=== PATIENT | male | born 1985 | race American Indian/Alaskan Native ===

== ENCOUNTER 2020-12-31 21:04 | Emergency (ER) | payer SELFPAY ==
[2020-12-31] MEDS ORDERED: IBUPROFEN 600 MG TAB PO ONE (23:09)
[2020-12-31] MEDS ORDERED: ONDANSETRON 4 MG ODT TAB PO ONE (23:09)
[2020-12-31] MEDS ORDERED: HYDROcodone/ACETAMINOPHEN 5-325 MG TAB PO ONE (23:09)
--- NOTE | 2020-12-31 23:44 | XRay Report ---
RIGHT KNEE 3 VIEWS INDICATION / CLINICAL INFORMATION: Patient complaining of right knee pain after jumping off the back of a car. COMPARISON: None available. FINDINGS: BONES / JOINT(S): The joint spaces are well-maintained. No significant arthritis. No evidence of frac ture, subluxation or joint effusion. SOFT TISSUES: No significant abnormality. ADDITIONAL FINDINGS: None. Signer Name: Blane Myers MD Signed: 12/31/2020 11:40 PM Workstation Name: [id number]
--- NOTE | 2021-01-01 00:06 | Emergency Department Report ---
ED Fall HPI - General Chief Complaint: Extremity Injury, Lower Stated Complaint: RIGHT KNEE PAIN Source: patient Mode of arrival: Ambulatory - History of Present Illness Initial Comments: Patient is a 35-year-old -French male with a history of asthma who presents to the ED with complaint of acute onset persistent severe right knee pain after he slipped of the trunk of a car that drove accidentally and unannounced and landed on his right knee about 4 hours ago. Patient states that he is unable to perform any active range of motion of the right leg because of severe right knee pain. Patient states that the pain is especially worse with any active range of motion or ambulation. Patient denies head or neck injuries, back pain, hip pain, dizziness, syncope, loss of consciousness, nausea and vomiting, chest pain or shortness of breath, numbness and tingling or weakness of lower extremities bilaterally. MD Complaint: fall, other (right knee pain) -: Sudden, hour(s) (4) Fall From: other (fell off a trunk of a car) When Fall Occurred: 4-6 hours [employer] Fall Witnessed: yes, by family Place Fall Occurred: street Loss of Consciousness: none Prolonged Down Time?: no Symptoms Prior to Fall: none Location: other (right knee) Location - Extremities: Right: Knee (pain) Severity: severe Severity scale (0 -10): 8 Quality: sharp, aching Context: tripped/slipped, other (Slipped and fell off the trunk of a car) Associated Symptoms: denies. denies: headache, neck pain, numbness, weakness, chest paint, shortness of breath, abdominal pain, hematuria, unable to walk, lightheaded, vertigo, confusion, other - Related Data Home Medications Medication Instructions Recorded Confirmed Last Taken Ipratropium [place] [Atrovent Hfa] 12.9 gm IH QID PRN 09/28/15 10/01/15 09/28/15 Previous Rx's Medication Instructions Recorded Last Taken Type Albuterol Mdi (or & Nicu Only) 2 puff IH QID PRN #1 inha 09/28/15 Unknown Rx [ProAir HFA Inhaler] diazePAM TAB [Valium] 5 mg PO Q8H PRN #12 tablet 10/01/15 Unknown Rx Acetaminophen/Codeine [Tylenol 1 - 2 tab PO Q6H PRN #12 tab 01/01/21 Unknown Rx /Codeine # 3 tab] Ibuprofen [Motrin] 800 mg PO Q8HR PRN #30 tablet 01/01/21 Unknown Rx methOCARBAMOL [Robaxin TAB] 750 mg PO Q8H PRN #21 tablet 01/01/21 Unknown Rx Allergies Allergy/AdvReac Type Severity Reaction Status Date / Time antihistamine Allergy Unknown Uncoded 12/31/20 23:07 ED Review of Systems ROS: Stated complaint: RIGHT KNEE PAIN Other details as noted in HPI Constitutional: denies: chills, fever Eyes: denies: eye pain, eye discharge, vision change ENT: denies: ear pain, throat pain Respiratory: denies: cough, shortness of breath, wheezing Cardiovascular: denies: chest pain, palpitations Endocrine: no symptoms reported Gastrointestinal: denies: abdominal pain, nausea, diarrhea Genitourinary: denies: urgency, dysuria Musculoskeletal: joint swelling (Mild right knee swelling), arthralgia (Right knee pain). denies: back pain Skin: denies: rash, lesions Neurological: denies: headache, weakness, paresthesias Psychiatric: denies: anxiety, depression Hematological/Lymphatic: denies: easy bleeding, easy bruising ED Past Medical Hx - Past Medical History Previous Medical History?: Yes Hx Asthma: Yes - Surgical History Past Surgical History?: No - Social History Smoking Status: Never Smoker Substance Use Type: None - Medications Home Medications: Home Medications Medication Instructions Recorded Confirmed Last Taken Type Albuterol Mdi (or & Nicu Only) 2 puff IH QID PRN #1 inha 09/28/15 10/01/15 Unknown Rx [ProAir HFA Inhaler] Ipratropium [place] [Atrovent Hfa] 12.9 gm IH QID PRN 09/28/15 10/01/15 09/28/15 History diazePAM TAB [Valium] 5 mg PO Q8H PRN #12 tablet 10/01/15 Unknown Rx Acetaminophen/Codeine [Tylenol 1 - 2 tab PO Q6H PRN #12 tab 01/01/21 Unknown Rx /Codeine # 3 tab] Ibuprofen [Motrin] 800 mg PO Q8HR PRN #30 tablet 01/01/21 Unknown Rx methOCARBAMOL [Robaxin TAB] 750 mg PO Q8H PRN #21 tablet 01/01/21 Unknown Rx ED Physical Exam - General Limitations: No Limitations General appearance: alert, in no apparent distress - Head Head exam: Present: atraumatic, normocephalic, normal inspection - Eye Eye exam: Present: normal appearance, PERRL, EOMI Pupils: Present: normal accommodation - ENT ENT exam: Present: normal exam, normal orophraynx, mucous membranes moist, TM's normal bilaterally, normal external ear exam - Neck Neck exam: Present: normal inspection, full ROM - Respiratory Respiratory exam: Present: normal lung sounds bilaterally. Absent: respiratory distress, wheezes, rales, rhonchi, chest wall tenderness, accessory muscle use, decreased breath sounds, prolonged expiratory, other - Cardiovascular Cardiovascular Exam: Present: regular rate, normal rhythm, normal heart sounds. Absent: systolic murmur, diastolic murmur, rubs, gallop - GI/Abdominal GI/Abdominal exam: Present: soft, normal bowel sounds. Absent: distended, tenderness, guarding, rebound, hyperactive bowel sounds - Extremities Exam Extremities exam: Present: normal inspection, tenderness (Palpable right knee tenderness with limited range of motion due to pain), normal capillary refill, joint swelling (Mild right knee swelling with tenderness). Absent: full ROM (Limited range of motion of right knee due to pain) - Back Exam Back exam: Present: normal inspection, full ROM. Absent: tenderness, CVA tenderness (R), CVA tenderness (L), muscle spasm, paraspinal tenderness, vertebral tenderness - Neurological Exam Neurological exam: Present: alert, oriented X3, CN II-XII intact, normal gait, reflexes normal - Psychiatric Psychiatric exam: Present: normal affect, normal mood - Skin Skin exam: Present: warm, dry, intact, normal color. Absent: rash ED Course Vital Signs 12/31/20 23:01 Temperature 98.6 F Pulse Rate 82 Respiratory 18 Rate Blood Pressure 163/109 O2 Sat by Pulse 99 Oximetry ED Medical Decision Making - Radiology Data Radiology results: report reviewed, image reviewed Findings [facility] [address] [place] [address] XRay Report Signed Patient: PATRICK LUNDBERG MR#: [id number] : 1985 Acct:[id number] Age/Sex: 35 / M ADM Date: 12/31/20 Loc: ED Attending Dr: Ordering Physician: LEA TRUONG Date of Service: 12/31/20 Procedure(s): XR knee 3V RT Accession Number(s): [id number] cc: LEA TRUONG Fluoro Time In Minutes: RIGHT KNEE 3 VIEWS INDICATION / CLINICAL INFORMATION: Patient complaining of right knee pain after jumping off the back of a car. COMPARISON: None available. FINDINGS: BONES / JOINT(S): The joint spaces are well-maintained. No significant arthritis. No evidence of fracture, subluxation or joint effusion. SOFT TISSUES: No significant abnormality. ADDITIONAL FINDINGS: None. Signer Name: Blane Myers MD Signed: 12/31/2020 11:40 PM Workstation Name: [id number] Transcribed By: RT Dictated By: Blane Myers MD Electronically Authenticated By: Blane Myers MD Signed Date/Time: 12/31/202339 DD/ 38 TD/TT: - Medical Decision Making This is a 35-year-old -French male with a history of asthma who presents to the ED with complaint of acute onset persistent severe right knee pain after he slipped of the trunk of a car that drove accidentally and unann ounced and landed on his right knee about 4 hours ago. Patient states that he is unable to perform any active range of motion of the right leg because of severe right knee pain. Patient states that the pain is especially worse with any active range of motion or ambulation. In the ED, patient is alert and oriented x3 and is not in distress. Patient however appears to be in significant pain. Patient was treated for pain in the ED and right knee x-ray shows no acute fractures or subluxations. Patient's right knee was splinted with Ron wrap and the patient was discharged home on pain medications and muscle relaxants and was advised to follow-up with his primary care physician in 7 to 10 days for reevaluation or return to the ED immediately if his symptoms get worse. - Differential Diagnosis Knee sprain; knee fracture; muscle strain; knee contusion; Critical care attestation.: If time is entered above; I have spent that time in minutes in the direct care of this critically ill patient, excluding procedure time. ED Disposition Clinical Impression: Sprain of right knee/leg Qualifiers: Encounter type: initial encounter Qualified Code(s): S83.91XA - Sprain of unspecified site of right knee, initial encounter Contusion of right knee and lower leg Qualifiers: Encounter type: initial encounter Qualified Code(s): S80.01XA - Contusion of right knee, initial encounter; S80.11XA - Contusion of right lower leg, initial encounter Muscle strain of right knee Qualifiers: Encounter type: initial encounter Qualified Code(s): S86.911A - Strain of unspecified muscle(s) and tendon(s) at lower leg level, right leg, initial encounter Disposition: TO HOME OR SELFCARE Is pt being admited?: No Does the pt Need Aspirin: No Condition: Stable Instructions: Muscle Strain, [id number], Contusion, [id number], Knee Sprain, Adult, [id number] Additional Instructions: The x-ray of your right knee showed no acute fractures or subluxations. The injuries are likely due to right knee sprain or muscle strain as a result of the fall. Therefore take medications with food, drink plenty of fluids and follow- up with your primary care physician in 5 to 7 days for reevaluation. Return to the ED immediately if symptoms get worse. Prescriptions: Ibuprofen [Motrin] 800 mg PO Q8HR PRN #30 tablet PRN Reason: Pain , Severe (7-10) methOCARBAMOL [Robaxin TAB] 750 mg PO Q8H PRN #21 tablet PRN Reason: Muscle Spasm Acetaminophen/Codeine [Tylenol /Codeine # 3 tab] 1 - 2 tab PO Q6H PRN #12 tab PRN Reason: Pain , Severe (7-10) Referrals: [facility] [Provider Group] - 3-5 Days Forms: Work/School Release Form(ED) Time of Disposition: 00:08 Print Language: WELSH
[2021-01-01 02:41] VITALS: BP 155/95
== END 2021-01-01 01:25 | disposition home or self-care (01) ==
LOC: ED 21:04
DX: S83.91XA Sprain of unspecified site of right knee, initial encounter (principal); S86.911A Strain of unspecified muscle(s) and tendon(s) at lower leg level, right leg, initial encounter; S80.01XA Contusion of right knee, initial encounter; S80.11XA Contusion of right lower leg, initial encounter; J45.909 Unspecified asthma, uncomplicated; Z88.8 Allergy status to other drugs, medicaments and biological substances; Z79.899 Other long term (current) drug therapy; W17.89XA Other fall from one level to another, initial encounter; Y92.410 Unspecified street and highway as the place of occurrence of the external cause; Y93.89 Activity, other specified; Y99.8 Other external cause status
CPT/HCPCS: Q0162

== ENCOUNTER 2021-04-16 01:14 | Emergency (ER) | payer SELFPAY ==
[2021-04-16 02:06] VITALS: BP 146/94
[2021-04-16] MEDS ORDERED: ALBUTEROL 2.5 MG/3 ML NEBU IH ONE (04:20)
[2021-04-16] MEDS ORDERED: predniSONE 50 MG TAB PO ONE (05:16)
--- NOTE | 2021-04-16 05:59 | Emergency Department Report ---
ED Asthma HPI - General Chief Complaint: Adult Asthma Stated Complaint: ASTHMA/TROUBLE BREATHING Time Seen by Provider: 04/16/21 04:20 Source: patient Mode of arrival: Ambulatory Limitations: No Limitations - History of Present Illness Initial Comments: 35-year-old F [place] female past with history of asthma presents emerged department complaining of some episodes of wheezing no shortness of breath and he may have a respiratory infection and he is run out of his asthma medication and needs refills. Ports no hemoptysis no hematemesis hematochezia no fevers chills or sweats. MD Complaint: "asthma attack", shortness of breath, wheezing Severity: mild Context: none known Associated Symptoms: none - Related Data Home Medications Medication Instructions Recorded Confirmed Last Taken Ipratropium [place] [Atrovent Hfa] 12.9 gm IH QID PRN 09/28/15 10/01/15 09/28/15 Previous Rx's Medication Instructions Recorded Last Taken Type Albuterol Mdi (or & Nicu Only) 2 puff IH QID PRN #1 inha 09/28/15 Unknown Rx [ProAir HFA Inhaler] diazePAM TAB [Valium] 5 mg PO Q8H PRN #12 tablet 10/01/15 Unknown Rx Acetaminophen/Codeine [Tylenol 1 - 2 tab PO Q6H PRN #12 tab 01/01/21 Unknown Rx /Codeine # 3 tab] Ibuprofen [Motrin] 800 mg PO Q8HR PRN #30 tablet 01/01/21 Unknown Rx methOCARBAMOL [Robaxin TAB] 750 mg PO Q8H PRN #21 tablet 01/01/21 Unknown Rx Albuterol Mdi (or & Nicu Only) 2 puff IH QID PRN #1 inhalation 04/16/21 Unknown Rx [ProAir HFA Inhaler] Azithromycin [Zithromax] 500 mg PO QDAY #3 tablet 04/16/21 Unknown Rx Montelukast [Singulair] 10 mg PO QPM #14 tablet 04/16/21 Unknown Rx predniSONE [Deltasone] 50 mg PO QDAY #5 tab 04/16/21 Unknown Rx Allergies Allergy/AdvReac Type Severity Reaction Status Date / Time antihistamine Allergy Unknown Uncoded 12/31/20 23:07 ED Review of Systems ROS: Stated complaint: ASTHMA/TROUBLE BREATHING Other details as noted in HPI Comment: All other systems reviewed and negative ED Past Medical Hx - Past Medical History Previous Medical History?: Yes Hx Asthma: Yes - Surgical History Past Surgical History?: No - Social History Smoking Status: Never Smoker Substance Use Type: None - Medications Home Medications: Home Medications Medication Instructions Recorded Confirmed Last Taken Type Albuterol Mdi (or & Nicu Only) 2 puff IH QID PRN #1 inha 09/28/15 10/01/15 Unknown Rx [ProAir HFA Inhaler] Ipratropium [place] [Atrovent Hfa] 12.9 gm IH QID PRN 09/28/15 10/01/15 09/28/15 History diazePAM TAB [Valium] 5 mg PO Q8H PRN #12 tablet 10/01/15 Unknown Rx Acetaminophen/Codeine [Tylenol 1 - 2 tab PO Q6H PRN #12 tab 01/01/21 Unknown Rx /Codeine # 3 tab] Ibuprofen [Motrin] 800 mg PO Q8HR PRN #30 tablet 01/01/21 Unknown Rx methOCARBAMOL [Robaxin TAB] 750 mg PO Q8H PRN #21 tablet 01/01/21 Unknown Rx Albuterol Mdi (or & Nicu Only) 2 puff IH QID PRN #1 inhalation 04/16/21 Unknown Rx [ProAir HFA Inhaler] Azithromycin [Zithromax] 500 mg PO QDAY #3 tablet 04/16/21 Unknown Rx Montelukast [Singulair] 10 mg PO QPM #14 tablet 04/16/21 Unknown Rx predniSONE [Deltasone] 50 mg PO QDAY #5 tab 04/16/21 Unknown Rx ED Physical Exam - General Limitations: No Limitations General appearance: alert, in no apparent distress - Head Head exam: Present: atraumatic, normocephalic - Eye Eye exam: Present: normal appearance - ENT ENT exam: Present: mucous membranes moist - Neck Neck exam: Present: normal inspection - Respiratory Respiratory exam: Present: normal lung sounds bilaterally, wheezes. Absent: respiratory distress - Cardiovascular Cardiovascular Exam: Present: regular rate, normal rhythm. Absent: systolic murmur, diastolic murmur, rubs, gallop - GI/Abdominal GI/Abdominal exam: Present: soft, normal bowel sounds - Rectal Rectal exam: Present: deferred - Extremities Exam Extremities exam: Present: normal inspection - Back Exam Back exam: Present: normal inspection - Neurological Exam Neurological exam: Present: alert, oriented X3 - Psychiatric Psychiatric exam: Present: normal affect, normal mood - Skin Skin exam: Present: warm, dry, intact, normal color. Absent: rash ED Course Vital Signs 04/16/21 04/16/21 02:03 06:21 Temperature 98.8 F Pulse Rate 95 H 108 H Respiratory 18 18 Rate Blood Pressure 146/94 O2 Sat by Pulse 96 97 Oximetry ED Medical Decision Making - Medical Decision Making No altered mental status, saddle respirations, belly breathing or other signs of impending ventilatory failure. No intubations or recent admissions to the hospital for asthma. Unlikely pneumonia, CHF, COPD, GERD Workup Review include a chest x-ray which was normal she also received steroids and albuterol Therapies: Prednisone 50 mg PO. Albuterol nebulizer Reassessment: Patient improved with albuterol and ipratropium in less than 3 hours. Disposition: Discharge home with return precautions. Advised to follow up with primary care physician within next 24-48 hours. Aside from this acute exacerbation patient has been well controlled on baseline home regimen. Rx short steroid course, albuterol, Singulair, Flovent Critical care attestation.: If time is entered above; I have spent that time in minutes in the direct care of this critically ill patient, excluding procedure time. ED Disposition Clinical Impression: Asthma Disposition: DC-01 TO HOME OR SELFCARE Is pt being admited?: No Does the pt Need Aspirin: No Condition: Stable Instructions: Asthma, Adult, Cough, Adult, [id number], How to Use a Nebulizer, Adult, Asthma (ED) Prescriptions: predniSONE [Deltasone] 50 mg PO QDAY #5 tab Albuterol Mdi (or & Nicu Only) [ProAir HFA Inhaler] 2 puff IH QID PRN #1 inhalation PRN Reason: Shortness Of Breath Montelukast [Singulair] 10 mg PO QPM #14 tablet Azithromycin [Zithromax] 500 mg PO QDAY #3 tablet Referrals: PRIMARY CARE [Primary Care Provider] - 3-5 Days [facility] [Provider Group] - 3-5 Days
== END 2021-04-16 06:21 | disposition home or self-care (01) ==
LOC: ED 01:14
DX: J45.909 Unspecified asthma, uncomplicated (principal); Z98.890 Other specified postprocedural states; Z88.8 Allergy status to other drugs, medicaments and biological substances; Z79.899 Other long term (current) drug therapy
CPT/HCPCS: 94640; 99283; J7512